=== PATIENT | male | born 1935 | race Asian ===

== ENCOUNTER 2019-08-12 19:08 | Emergency (ER) | payer OTHER ==
[~2019-08-12] VITALS: Ht 165.1 cm; Wt 53.2 kg
--- NOTE | 2019-08-12 19:16 | NUR ---
PT BIBRA. AAOX3. NAME, , PLACE. PER RA PT HAS HX OF R SIDED STROKE. BROUGHT IN TODAY FOR ELEVATED BG 390. PT ABLE TO MOVE ALL EXTREMITIES AND DENIES PAIN, RR EVEN AND UNLABORED, PLACED ON MONITOR AND PULSE OX. VSS. SKIN WARM AND INTACT. MD AT BEDSIDE FOR EVAL.
--- NOTE | 2019-08-12 19:16 | NUR ---
PER RA, PT HAS R SIDED DROOPING WHICH IS NORMAL, WALKS WITH A WALKER AND IS NONVERBAL. PT MUMBLES WHEN SPOKEN TO WHICH IS COMPREHENSABLE.
--- NOTE | 2019-08-12 19:18 | NUR ---
HR: 89 BP: 144/77 O2: 99 ON ROOM AIR.
[2019-08-12] MEDS ORDERED: IV NS 0.9% 1,000 ML BAG IV ONE (19:30)
--- NOTE | 2019-08-12 19:31 | NUR ---
PT BROUGHT TO CT, UNABLE TO OBTAIN LABS
[2019-08-12 19:58] LABS: BASOPHILS % (AUTO) 0.4 % (0.0-2.0); EOSINOPHILS % (AUTO) 0.6 % (0.0-6.0); HEMATOCRIT 38 % (39-51); HEMOGLOBIN 12.5 g/dL (13.5-17.5); LYMPHOCYTES # (AUTO) 1.3 /CMM (0.8-4.8); LYMPHOCYTES % (AUTO) 15.2 % (20.0-44.0); MEAN CORPUSCULAR HGB CONC 33 g/dl (31.0-36.0); MEAN CORPUSCULAR VOLUME 101 fL (80-96); MONOCYTES # (AUTO) 0.6 /CMM (0.1-1.30); MONOCYTES % (AUTO) 6.4 % (2.0-12.0); NEUTROPHILS # (AUTO) 6.8 /CMM (1.8-8.9); NEUTROPHILS % (AUTO) 77.4 % (43.0-81.0); PLATELET COUNT (AUTO) 271 /CMM (150-450); RED BLOOD CELL COUNT(AUTO) 3.73 MIL/uL (4.5-6.0); WHITE BLOOD COUNT (AUTO) 8.8 K/uL (4.3-11.0)
[2019-08-12 20:13] LABS: SERUM AMMONIA 7 umol/L (11-32)
[2019-08-12 20:16] LABS: ALANINE AMINOTRANSFERASE 37 U/L (12-78); ALCOHOL, BLOOD < 3 mg/dL (0-0); ALKALINE PHOSPHATASE 76 U/L (46-116); ASPARTATE AMINOTRANSFERASE 18 U/L (15-37); BILIRUBIN,TOTAL 0.2 mg/dL (0.2-1.0); CALCIUM, SERUM 9.3 mg/dL (8.5-10.1); CARBON DIOXIDE 32 mmol/L (21-32); CHLORIDE 106 mmol/L (98-107); CREATININE 1.3 mg/dL (0.6-1.3); POTASSIUM 4.7 mmol/L (3.5-5.1); SODIUM SERUM 144 mmol/L (136-145); TOTAL PROTEIN, SERUM 7.1 g/dL (6.4-8.2); UREA NITROGEN, BLOOD 25 mg/dL (7-18)
[2019-08-12] MEDS ORDERED: LEVETIRACETAM (500MG) 500 MG/5 ML VIAL IV ONE ×2 (20:17→20:25)
[2019-08-12 20:19] LABS: ACETAMINOPHEN < 5 ug/ml (10-30); GLUCOSE 379 mg/dL (74-106); SALICYLATE 1.1 mg/dL (2.8-20.0)
[2019-08-12 20:19] LABS: APPEARANCE,URINE Clear (CLEAR); BILIRUBIN,URINE Negative (NEGATIVE); BLOOD, URINE Trace-intact Ery/uL (NEGATIVE); COLOR,URINE Yellow (YELLOW); KETONES,URINE Negative (NEGATIVE); LEUKOCYTE ESTERASE ,URINE Negative (NEGATIVE); NITRITE, URINE Negative (NEGATIVE); PROTEIN,URINE 100 mg/dl (NEGATIVE); UGLUCOSE >=1000 mg/dL (NEGATIVE); UROBILINOGEN,URINE 0.2 EU/dL (0.2)
[2019-08-12 20:25] LABS: THYROID STIMULATING HORMONE 0.525 uIU/mL (0.358-3.74)
[2019-08-12] MEDS ORDERED: LEVETIRACETAM (500MG) 1,000 MG in IV NS 0.9% 100 ML IV SCH (20:30)
--- NOTE | 2019-08-12 20:30 | NUR ---
PER FAMILY, PT HAD 2 EPISODES OF SEIZURE TODAY. STARETD ON KEPPRA.
[2019-08-12 20:31] LABS: BACTERIA,URINE Rare /HPF (None Seen); MUCUS,URINE Moderate /LPF (None Seen); SQUAMOUS EPITHELIAL CELL,UR Rare /HPF (None Seen); URINE AMORPHOUS URATE Few /HPF (None Seen); WBC,URINE 0-2 /HPF (0-3)
--- NOTE | 2019-08-12 20:35 | NUR ---
Patient is resting comfortably in bed. Easily aroused. VSS. Family at bedside.
[2019-08-12] MEDS ORDERED: INSU100V7 SQ (20:36)
[2019-08-12] MEDS ORDERED: SIMV-49 PO (20:36)
[2019-08-12] MEDS ORDERED: APIX2.5T PO (20:36)
[2019-08-12] MEDS ORDERED: ATOR40TA PO (20:36)
[2019-08-12] MEDS ORDERED: LISI-603 PO (20:36)
[2019-08-12] MEDS ORDERED: GLIP10TA11 PO (20:36)
[2019-08-12] MEDS ORDERED: QUET25TA PO (20:36)
--- NOTE | 2019-08-12 21:02 | NUR ---
daughter at bedside
--- NOTE | 2019-08-12 21:05 | NUR ---
PER DAUGHTER, "I SPOKE TO THE SITTER AND SHE SAID AT 10-11 AM HE HAD 3MIN SEIZURE, WHERE HE JUST LOOKED UP." THEN STATED, "PT HAD ANOTHER SEIZURE AT 6:30 WHERE HIS RIGHT SIDE WAS GOING TO THE SIDE AND HE STARTED EATING WITH HIS HANDS, WHEN HE USUALLY USES UTENSILS." PT'S DAUGHTER AWARE THAT PT IS BEING ADMITED. VSS.
--- NOTE | 2019-08-12 21:54 | NUR ---
Patient is resting comfortably in bed. Easily aroused. VSS.
--- NOTE | 2019-08-12 22:15 | NUR ---
SPOKE TO ARLEY FROM [facility] REGARDING INSURANCE. ARLEY REQUESTED FACESHEET AND CLINICALS FAXED TO .
--- NOTE | 2019-08-12 22:16 | NUR ---
FAXED CLINICALS AND FACESHEET
--- NOTE | 2019-08-12 23:05 | NUR ---
RESTING. EASILY AROUSED. VSS.
--- NOTE | 2019-08-13 00:06 | NUR ---
TRANSFER INFORMATION: PT WILL BE TRANSFERRED TO [facility] PER INSURANCE REQUEST NUMBER FOR REPORT: [phone] NURSE FOR REPORT: DEVAN MATHUR MD: [facility] ETA 45-60 MINUTES
[2019-08-13 00:53] VITALS: BP 129/61
--- NOTE | 2019-08-13 01:52 | NUR ---
PT TRANSFERED PER [employer].
== END 2019-08-13 01:54 | disposition short-term general hospital (02) ==
LOC: ER 19:10
DX: R56.9 Unspecified convulsions (principal); E11.65 Type 2 diabetes mellitus with hyperglycemia; R41.82 Altered mental status, unspecified; I10 Essential (primary) hypertension; Z86.73 Personal history of transient ischemic attack (TIA), and cerebral infarction without residual deficits; Z98.890 Other specified postprocedural states; Z79.4 Long term (current) use of insulin; Z79.899 Other long term (current) drug therapy
CPT/HCPCS: 36415; 70450; 71045; 80048; 80076; 80305; 80307; 80329; 81001; 82140; 82962; 84443; 84484; 85025; 85730; 87081; 93005; 96361; 96365; 99285; G0480; J1953 ×3; J7030 ×3; 81000-TC